=== PATIENT | female | born 1945 | race Caucasian/White ===

== ENCOUNTER 2024-03-03 08:51 | Outpatient (CLI) | payer MEDICARE, OTHER ==
[~2024-03-03] VITALS: Ht 160 cm; Wt 49.0 kg
[2024-03-03] VITALS (7 sets, daily range): BP systolic 133–159; BP diastolic 43–58; PULSE 86–104; RESP 18–20; O2SAT 96–97
[2024-03-03] MEDS ORDERED: aminophylline 250mg/10ml inj. IV PRN (09:30)
[2024-03-03] MEDS ORDERED: normal saline 500ml IV soln 500 ML IV ONE (09:30)
[2024-03-03] MEDS ORDERED: metoprolol tartrate 1mg/ml inj IV PRN (09:30)
[2024-03-03] MEDS ORDERED: nitroGLYCERIN 0.4mg SUBLingual tab SL PRN (09:30)
[2024-03-03] MEDS: regadenoson 0.4mg/5ml syringe IV ONE (10:18)
[2024-03-03] MEDS ORDERED: METO25TA6 PO (13:04)
[2024-03-03] MEDS ORDERED: LISI20TA28 PO (13:04)
[2024-03-03] MEDS ORDERED: ATOR20TA66 PO (13:04)
[2024-03-03] MEDS ORDERED: FERR325T28 PO (13:04)
[2024-03-03] MEDS ORDERED: CLOP-32 PO (13:04)
[2024-03-03] MEDS ORDERED: MIRT-66 PO (13:04)
[2024-03-03] MEDS ORDERED: ASPI81TA52 PO (13:04)
[2024-03-03] MEDS ORDERED: PANT40TA54 PO (13:04)
== END 2024-03-03 23:59 | disposition home or self-care (01) ==
LOC: RAD 08:51
PROVIDERS: ATTEND Surgery
DX: I25.9 Chronic ischemic heart disease, unspecified (principal); D38.1 Neoplasm of uncertain behavior of trachea, bronchus and lung
CPT/HCPCS: 78452; 93017; A9500; J2785; J7040; J0280

== ENCOUNTER 2024-03-29 08:00 | Inpatient (IN) | payer MEDICARE ==
[~2024-03-29] VITALS: Ht 147.3 cm; Wt 44.3 kg
[~2024-03-29 08:00] MED LIST: ASPI81TA52 PO; ATOR20TA66 PO; CLOP-32 PO; FERR325T28 PO; LISI20TA28 PO
[2024-03-29] MEDS ORDERED: MIRT-66 PO (16:24)
[2024-03-31] VITALS (28 sets, daily range): BP systolic 93–179; BP diastolic 42–110; PULSE 74–96; RESP 10–18; TEMP 97.3; O2SAT 90–100
[2024-03-31] MEDS: cefazolin 2gm/D5W 100mL 100 ML IV ONE (05:30)
[2024-03-31] MEDS: ringers solution, lacted 1,000 ML IV SCH ×2 (06:57→12:42)
[2024-03-31] MEDS: famotidine 20mg tablet PO ONE (06:57)
[2024-03-31] MEDS: INDOCYANINE GREEN 25 MG/10 ML VIAL IV ONE (07:28)
[2024-03-31] MEDS ORDERED: MIDAZolam 1 MG/ML 5ML VIAL ONE (07:55)
[2024-03-31] MEDS ORDERED: fentaNYL /PF 50mcg/ml 5ml ampule ONE (07:55)
[2024-03-31] MEDS ORDERED: rocuronium 10mg/ml inj IV ONE (07:58)
[2024-03-31] MEDS ORDERED: ondansetron/PF 4mg/2ml inj ONE (07:58)
[2024-03-31] MEDS ORDERED: LIDOcaine 2% (20mg/ml) 5ml vial ONE (07:58)
[2024-03-31] MEDS ORDERED: dexamethasone sod phosphate 4mg/ml inj. ONE (07:58)
[2024-03-31] MEDS ORDERED: propofol inj 20 ML IV ONE (07:58)
[2024-03-31 08:04] LABS: ALANINE AMINOTRANSFERASE 19 U/L (12-78); ALBUMIN 2.7 G/DL (3.4-5.0); ALBUMIN/GLOBULIN RATIO 0.8 (1.1-1.5); ALKALINE PHOSPHATASE 51 IU/L (46-116); ANION GAP 2 (8-16); ASPARTATE AMINO TRANSFERASE 17 U/L (10-37); BILIRUBIN,TOTAL 0.3 MG/DL (0.1-1.0); BLOOD UREA NITROGEN 6 MG/DL (7-18); BUN/CREATININE RATIO 9.1 (10.0-20.0); CALCIUM 8.3 MG/DL (8.5-10.1); CHLORIDE 101 MMOL/L (99-107); CREATININE 0.66 MG/DL (0.40-0.90); GLUCOSE 95 MG/DL (70-104); POTASSIUM 4.2 MMOL/L (3.5-5.1); SODIUM 133 MMOL/L (135-145); TOTAL CARBON DIOXIDE 29.6 MMOL/L (24-32); TOTAL PROTEIN 6.3 G/DL (6.4-8.2); eCRCL 54 ML/MIN; eGFR 87 ML/MIN
[2024-03-31] MEDS ORDERED: fentaNYL/PF 50MCG/1 ML 2ML syringe IV PRN (08:05)
[2024-03-31] MEDS ORDERED: labetalol 20mg/4ml (5mg/ml) syringe IV PRN (08:05)
[2024-03-31] MEDS ORDERED: ondansetron/PF 4mg/2ml inj IV PRN (08:05)
[2024-03-31] MEDS ORDERED: hydrALAZINE 20mg/ml inj. IV PRN (08:05)
[2024-03-31] MEDS ORDERED: morphine 2 MG/ML inj. syringe IV PRN (08:05)
[2024-03-31] MEDS ORDERED: morphine 4 MG/ML inj SYRINge IV PRN (08:05)
[2024-03-31] MEDS ORDERED: sevoflurane 250ml liquid IH ONE (08:15)
[2024-03-31] MEDS ORDERED: albumin (Human) 5% 250ml 250 ML IV ONE (09:36)
[2024-03-31] MEDS: BUPIVACAINE liposomal/PF 13.3 MG/ML vial IM ONE (10:04)
[2024-03-31] MEDS: BUPIVAcaine 2.5mg/ml inj 50ml vial (contains preservative) ONE (10:11)
[2024-03-31] MEDS ORDERED: acetaminophen 1,000mg/100ml IV 100 ML IV ONE (10:13)
[2024-03-31] MEDS ORDERED: sugammadex 200mg/2ml injection IV ONE (10:43)
[2024-03-31] MEDS ORDERED: naloxone 0.4 mg/ml inj IV PRN (11:15)
[2024-03-31] MEDS: fentaNYL/PF 50MCG/1 ML 2ML syringe IV PRN (11:20)
[2024-03-31 11:28] LABS: ABG BASE EXCESS -1.8 mmol/L (-2.0-2.0); ABG OXYGEN SATURATION 99.3 % (92-98.5); ABG PCO2 (T) 50.7 mmHg (32.0-45.0); ABG PH (T) 7.307 (7.350-7.450); ABG PO2 (T) 174.6 mmHg (75.0-100.0); ALLEN'S TEST POSITIVE; FCOHb 0.5 % (0.5-1.5); FHHb 0.7 % (0.0-5.0); FLOW 10 L/min; FO2Hb 98.8 % (94-97); MODE MASK - SIMPLE; PATIENT TEMPERATURE 36.1; TOTAL HEMOGLOBIN 10.1 G/dl (12.0-16.0)
[2024-03-31] MEDS: potassium CL 20mEq in D5-1/2NS 1,000 ML IV SCH (12:13)
[2024-03-31 12:57] LABS: ABG BASE EXCESS 0.4 mmol/L (-2.0-2.0); ABG HCO3 26.3 mmol/L (22.0-26.0); ABG OXYGEN SATURATION 94.1 % (92-98.5); ABG PCO2 (T) 46.8 mmHg (32.0-45.0); ABG PH (T) 7.363 (7.350-7.450); ABG PO2 (T) 70.8 mmHg (75.0-100.0); ALLEN'S TEST NEGATIVE; FCOHb 0.3 % (0.5-1.5); FHHb 5.9 % (0.0-5.0); FLOW 1 L/min; FMetHb 0.3 % (0.0-1.5); FO2Hb 93.5 % (94-97); MODE NASAL CANNULA; TOTAL HEMOGLOBIN 9.8 G/dl (12.0-16.0)
[2024-03-31] MEDS: ketorolac trometh 15mg/ml vial 15 MG/ML ML IV PRN (14:03)
[2024-03-31] MEDS: nicotine 14mg patch - 24hr TD SCH (14:03)
[2024-03-31] MEDS: ferrous sulfate 325mg tablet PO SCH (14:05)
[2024-03-31] MEDS: clopidogrel 75mg tablet PO SCH (14:05)
[2024-03-31] MEDS: aspirin 81mg, enteric-coated 1 TAB TABLET.DR PO SCH (14:05)
[2024-03-31] MEDS: atorvastatin 20mg tablet PO SCH (14:33)
[2024-03-31] MEDS: HYDROcodone/acetaminophen 5mg/325mg tablet PO PRN (14:33)
[2024-03-31] MEDS: lisinopril 20mg tablet PO SCH (14:33)
[2024-03-31] MEDS: albuterol 2.5 MG/3 ML nebule NEB ONE (14:47)
[2024-03-31 15:15] LABS: BASOPHILS % (AUTO) 0.2 % (0-1); EOSINOPHILS % (AUTO) 0 % (0-6); HEMATOCRIT 26.3 % (35.0-45.0); HEMOGLOBIN 8.2 g/dl (12.0-16.0); LYMPHOCYTES # (AUTO) 0.2 X10'3 (1.1-4.8); LYMPHOCYTES % (AUTO) 1.7 % (21-51); MEAN CORPUSCULAR HEMOGLOBIN 28.6 PG (27.0-31.0); MEAN CORPUSCULAR HGB CONC 31.1 g/dL (33.0-36.5); MEAN CORPUSCULAR VOLUME 92.1 FL (78-98); MEAN PLATELET VOLUME 8.9 FL (7.4-10.4); MONOCYTES # (AUTO) 0.2 X10'3 (0-0.9); MONOCYTES % (AUTO) 1.7 % (2-12); NEUTROPHILS # (AUTO) 9.8 X10'3 (1.8-7.7); NEUTROPHILS % (AUTO) 96.4 % (42-75); PLATELET COUNT 158 X10'3 (140-440); RED BLOOD COUNT 2.86 X10'6 (4.20-5.60); RED CELL DISTRIBUTION WIDTH 16.5 % (11.5-14.5); WHITE BLOOD COUNT 10.1 X10'3 (4.5-11.0)
[2024-03-31 15:27] LABS: ALANINE AMINOTRANSFERASE 22 U/L (12-78); ALBUMIN 2.7 G/DL (3.4-5.0); ALKALINE PHOSPHATASE 47 IU/L (46-116); ANION GAP 4 (8-16); ASPARTATE AMINO TRANSFERASE 24 U/L (10-37); BILIRUBIN,TOTAL 0.2 MG/DL (0.1-1.0); BLOOD UREA NITROGEN 6 MG/DL (7-18); BUN/CREATININE RATIO 8.5 (10.0-20.0); CALCIUM 7.7 MG/DL (8.5-10.1); CHLORIDE 98 MMOL/L (99-107); CREATININE 0.71 MG/DL (0.40-0.90); GLUCOSE 274 MG/DL (70-104); MAGNESIUM 1.4 MG/DL (1.5-2.4); PHOSPHORUS 3.4 MG/DL (2.3-4.5); POTASSIUM 3.8 MMOL/L (3.5-5.1); SODIUM 130 MMOL/L (135-145); TOTAL CARBON DIOXIDE 28.3 MMOL/L (24-32); TOTAL PROTEIN 5.5 G/DL (6.4-8.2); eCRCL 43 ML/MIN; eGFR 80 ML/MIN
[2024-03-31] MEDS ORDERED: potassium Cl 40MEQ/1/2NS 520ml 520 ML IV PRN (15:30)
[2024-03-31] MEDS ORDERED: potassium Cl 20 mEq SR tablet PO PRN ×2 (15:30)
[2024-03-31] MEDS ORDERED: magnesium Cl slow-release 64mg tablet PO PRN (15:30)
[2024-03-31] MEDS: magnesium sulf-water 4G/100mL 100 ML IV PRN (15:57)
[2024-03-31] MEDS: ceFAZolin/D5W- 1GM premix 50 ML IV SCH (16:29)
[2024-03-31] MEDS: HYDROmorphone inj. 0.5 MG/0.5 ML DISP.SYRIN IV PRN (17:59)
[2024-03-31] MEDS: K and/or MAG REPLACEMENT MC SCH (18:44)
[2024-03-31] MEDS: magnesium sulf-water 2g/50mL 50 ML IV PRN (20:44)
[2024-03-31] MEDS: mirtazapine 15mg tablet PO SCH (20:44)
[2024-03-31] MEDS: ondansetron/PF 4mg/2ml inj IV PRN (21:35)
[2024-03-31] MEDS: potassium cl 20mEq in 1/2 NS 1,000 ML IV SCH (21:37)
[2024-04-01] VITALS (21 sets, daily range): BP systolic 107–182; BP diastolic 42–102; PULSE 77–115; RESP 9–21; TEMP 97.7; O2SAT 91–99
[2024-04-01 00:27] LABS: BASOPHILS % (AUTO) 0.1 % (0-1); EOSINOPHILS % (AUTO) 0 % (0-6); LYMPHOCYTES # (AUTO) 0.3 X10'3 (1.1-4.8); MEAN CORPUSCULAR HEMOGLOBIN 29.4 PG (27.0-31.0); MEAN CORPUSCULAR VOLUME 91.8 FL (78-98); MEAN PLATELET VOLUME 9.1 FL (7.4-10.4); MONOCYTES # (AUTO) 0.2 X10'3 (0-0.9); MONOCYTES % (AUTO) 3.3 % (2-12); NEUTROPHILS # (AUTO) 6.4 X10'3 (1.8-7.7); NEUTROPHILS % (AUTO) 92.6 % (42-75); PLATELET COUNT 148 X10'3 (140-440); RED BLOOD COUNT 2.32 X10'6 (4.20-5.60); RED CELL DISTRIBUTION WIDTH 16.7 % (11.5-14.5); WHITE BLOOD COUNT 6.9 X10'3 (4.5-11.0)
[2024-04-01 00:29] LABS: HEMATOCRIT 21.3 % (35.0-45.0); HEMOGLOBIN 6.8 g/dl (12.0-16.0)
[2024-04-01 00:38] LABS: ALANINE AMINOTRANSFERASE 19 U/L (12-78); ALBUMIN 2.4 G/DL (3.4-5.0); ALBUMIN/GLOBULIN RATIO 0.9 (1.1-1.5); ALKALINE PHOSPHATASE 41 IU/L (46-116); ANION GAP 4 (8-16); ASPARTATE AMINO TRANSFERASE 23 U/L (10-37); BILIRUBIN,TOTAL 0.2 MG/DL (0.1-1.0); BLOOD UREA NITROGEN 8 MG/DL (7-18); BUN/CREATININE RATIO 12.3 (10.0-20.0); CALCIUM 7.6 MG/DL (8.5-10.1); CHLORIDE 97 MMOL/L (99-107); CREATININE 0.65 MG/DL (0.40-0.90); GLUCOSE 224 MG/DL (70-104); MAGNESIUM 3.1 MG/DL (1.5-2.4); PHOSPHORUS 2.8 MG/DL (2.3-4.5); POTASSIUM 4.8 MMOL/L (3.5-5.1); SODIUM 127 MMOL/L (135-145); TOTAL CARBON DIOXIDE 26.3 MMOL/L (24-32); TOTAL PROTEIN 5.2 G/DL (6.4-8.2); eCRCL 46 ML/MIN; eGFR 88 ML/MIN
[2024-04-01] MEDS: albumin (Human) 5% 250ml 250 ML IV ONE ×2 (01:57)
[2024-04-01] MEDS: hydrALAZINE 20mg/ml inj. IV PRN (04:17)
[2024-04-01 05:28] LABS: HEMATOCRIT 23.3 % (35.0-45.0); HEMOGLOBIN 7.5 g/dl (12.0-16.0); MEAN CORPUSCULAR HEMOGLOBIN 28.9 PG (27.0-31.0); MEAN CORPUSCULAR HGB CONC 32.2 g/dL (33.0-36.5); MEAN CORPUSCULAR VOLUME 89.8 FL (78-98); MEAN PLATELET VOLUME 9.3 FL (7.4-10.4); PLATELET COUNT 121 X10'3 (140-440); RED BLOOD COUNT 2.59 X10'6 (4.20-5.60); RED CELL DISTRIBUTION WIDTH 16.4 % (11.5-14.5); WHITE BLOOD COUNT 7.2 X10'3 (4.5-11.0)
[2024-04-01] MEDS: metoclopramide 5 mg/ml inj IV PRN (06:51)
[2024-04-01] MEDS: metoclopramide 5 mg/ml inj IV SCH (12:49)
[2024-04-02] VITALS (13 sets, daily range): BP systolic 107–174; BP diastolic 47–84; PULSE 109–122; RESP 14–26; TEMP 97.7–99.3; O2SAT 96–99
[2024-04-02] MEDS ORDERED: hydrALAZINE 20mg/ml inj. IV PRN (01:45)
[2024-04-02 09:11] LABS: ALANINE AMINOTRANSFERASE 18 U/L (12-78); ALBUMIN 2.7 G/DL (3.4-5.0); ALKALINE PHOSPHATASE 41 IU/L (46-116); ANION GAP 5 (8-16); ASPARTATE AMINO TRANSFERASE 30 U/L (10-37); BILIRUBIN,TOTAL 0.4 MG/DL (0.1-1.0); BLOOD UREA NITROGEN 9 MG/DL (7-18); BUN/CREATININE RATIO 13.8 (10.0-20.0); CALCIUM 7.7 MG/DL (8.5-10.1); CHLORIDE 96 MMOL/L (99-107); CREATININE 0.65 MG/DL (0.40-0.90); GLUCOSE 121 MG/DL (70-104); POTASSIUM 4.9 MMOL/L (3.5-5.1); SODIUM 126 MMOL/L (135-145); TOTAL CARBON DIOXIDE 25.1 MMOL/L (24-32); TOTAL PROTEIN 5.4 G/DL (6.4-8.2); eCRCL 46 ML/MIN; eGFR 88 ML/MIN
[2024-04-02 09:16] LABS: BASOPHILS % (AUTO) 0.2 % (0-1); EOSINOPHILS % (AUTO) 0.1 % (0-6); LYMPHOCYTES # (AUTO) 1.3 X10'3 (1.1-4.8); LYMPHOCYTES % (AUTO) 12.8 % (21-51); MEAN CORPUSCULAR HEMOGLOBIN 28.6 PG (27.0-31.0); MEAN CORPUSCULAR HGB CONC 31.9 g/dL (33.0-36.5); MEAN CORPUSCULAR VOLUME 89.5 FL (78-98); MEAN PLATELET VOLUME 9.5 FL (7.4-10.4); MONOCYTES # (AUTO) 0.6 X10'3 (0-0.9); MONOCYTES % (AUTO) 6.2 % (2-12); NEUTROPHILS # (AUTO) 8.3 X10'3 (1.8-7.7); NEUTROPHILS % (AUTO) 80.7 % (42-75); PLATELET COUNT 157 X10'3 (140-440); RED BLOOD COUNT 2.16 X10'6 (4.20-5.60); RED CELL DISTRIBUTION WIDTH 16.3 % (11.5-14.5); WHITE BLOOD COUNT 10.3 X10'3 (4.5-11.0)
[2024-04-02 09:19] LABS: HEMATOCRIT 19.3 % (35.0-45.0); HEMOGLOBIN 6.2 g/dl (12.0-16.0)
[2024-04-02 10:17] LABS: MAGNESIUM 1.7 MG/DL (1.5-2.4)
[2024-04-02] MEDS: ceFAZolin/D5W- 1GM premix 50 ML IV SCH (16:18)
[2024-04-02] MEDS: haloperidol lactate 5mg/ml inj IM PRN (19:56)
[2024-04-03] VITALS (7 sets, daily range): BP systolic 112–141; BP diastolic 44–56; PULSE 105–114; RESP 14–19; TEMP 97.9–98.1; O2SAT 92–95
[2024-04-03 14:42] LABS: BASOPHILS % (AUTO) 0.3 % (0-1); EOSINOPHILS % (AUTO) 0.3 % (0-6); HEMATOCRIT 22.3 % (35.0-45.0); HEMOGLOBIN 7.3 g/dl (12.0-16.0); LYMPHOCYTES % (AUTO) 11.7 % (21-51); MEAN CORPUSCULAR HEMOGLOBIN 29.2 PG (27.0-31.0); MEAN CORPUSCULAR HGB CONC 32.5 g/dL (33.0-36.5); MEAN CORPUSCULAR VOLUME 89.7 FL (78-98); MEAN PLATELET VOLUME 9.1 FL (7.4-10.4); MONOCYTES # (AUTO) 0.5 X10'3 (0-0.9); MONOCYTES % (AUTO) 5.7 % (2-12); NEUTROPHILS # (AUTO) 7.2 X10'3 (1.8-7.7); PLATELET COUNT 136 X10'3 (140-440); RED BLOOD COUNT 2.49 X10'6 (4.20-5.60); RED CELL DISTRIBUTION WIDTH 15.2 % (11.5-14.5); WHITE BLOOD COUNT 8.8 X10'3 (4.5-11.0)
[2024-04-03 14:53] LABS: ALANINE AMINOTRANSFERASE 27 U/L (12-78); ALBUMIN 2.4 G/DL (3.4-5.0); ALBUMIN/GLOBULIN RATIO 0.9 (1.1-1.5); ALKALINE PHOSPHATASE 43 IU/L (46-116); ANION GAP 6 (8-16); ASPARTATE AMINO TRANSFERASE 66 U/L (10-37); BILIRUBIN,TOTAL 0.5 MG/DL (0.1-1.0); BLOOD UREA NITROGEN 10 MG/DL (7-18); BUN/CREATININE RATIO 18.5 (10.0-20.0); CALCIUM 7.7 MG/DL (8.5-10.1); CHLORIDE 96 MMOL/L (99-107); CREATININE 0.54 MG/DL (0.40-0.90); GLUCOSE 116 MG/DL (70-104); MAGNESIUM 1.5 MG/DL (1.5-2.4); POTASSIUM 4.1 MMOL/L (3.5-5.1); SODIUM 128 MMOL/L (135-145); TOTAL CARBON DIOXIDE 25.9 MMOL/L (24-32); TOTAL PROTEIN 5.1 G/DL (6.4-8.2); eCRCL 55 ML/MIN; eGFR > 90 ML/MIN
[2024-04-04 02:00] VITALS: BP 140/45; PULSE 105; RESP 14; TEMP 98.1; O2SAT 94
[2024-04-04 06:21] LABS: MAGNESIUM 1.7 MG/DL (1.5-2.4); POTASSIUM 3.8 MMOL/L (3.5-5.1)
[2024-04-04 08:00] VITALS: RESP 16; O2SAT 94
[2024-04-04] MEDS: docusate sod 100mg capsule PO SCH (09:19)
[2024-04-04] MEDS: lactose-reduced food (Ensure Enlive) - 237ml bottle PO SCH (18:00)
[2024-04-04 20:00] VITALS: RESP 16; RESP 18; O2SAT 93; O2SAT 94
[2024-04-04] MEDS: sennosides/docusate sodium tablet PO SCH (20:17)
[2024-04-05] VITALS (7 sets, daily range): BP systolic 102–149; BP diastolic 44–60; PULSE 109–114; RESP 16–20; TEMP 97–98.2; O2SAT 93–94
[2024-04-06] VITALS (8 sets, daily range): BP systolic 115–155; BP diastolic 41–62; PULSE 108–118; RESP 13–20; TEMP 97.1–99; O2SAT 93–98
[2024-04-07] VITALS (7 sets, daily range): BP systolic 121–130; BP diastolic 52–88; PULSE 100–113; RESP 14–22; TEMP 97.6–98.1; O2SAT 94–98
[2024-04-08] VITALS (8 sets, daily range): BP systolic 108–160; BP diastolic 40–73; PULSE 94–120; RESP 15–32; TEMP 96.8–98.9; O2SAT 93–97
[2024-04-08 11:04] LABS: BASOPHILS # (AUTO) 0.1 X10'3 (0-0.2); BASOPHILS % (AUTO) 0.5 % (0-1); EOSINOPHILS # (AUTO) 0.1 X10'3 (0-0.9); EOSINOPHILS % (AUTO) 0.6 % (0-6); HEMATOCRIT 23.1 % (35.0-45.0); HEMOGLOBIN 7.4 g/dl (12.0-16.0); LYMPHOCYTES # (AUTO) 0.6 X10'3 (1.1-4.8); LYMPHOCYTES % (AUTO) 4.2 % (21-51); MEAN CORPUSCULAR HEMOGLOBIN 29.5 PG (27.0-31.0); MEAN CORPUSCULAR HGB CONC 32.2 g/dL (33.0-36.5); MEAN CORPUSCULAR VOLUME 91.6 FL (78-98); MEAN PLATELET VOLUME 9.2 FL (7.4-10.4); MONOCYTES # (AUTO) 0.7 X10'3 (0-0.9); MONOCYTES % (AUTO) 5.2 % (2-12); NEUTROPHILS % (AUTO) 89.5 % (42-75); PLATELET COUNT 199 X10'3 (140-440); RED BLOOD COUNT 2.53 X10'6 (4.20-5.60); WHITE BLOOD COUNT 13.4 X10'3 (4.5-11.0)
[2024-04-08 12:08] LABS: ALBUMIN 1.9 G/DL (3.4-5.0); ANION GAP 8 (8-16); BLOOD UREA NITROGEN 12 MG/DL (7-18); BUN/CREATININE RATIO 25.5 (10.0-20.0); CHLORIDE 95 MMOL/L (99-107); CREATININE 0.47 MG/DL (0.40-0.90); GLUCOSE 81 MG/DL (70-104); POTASSIUM 3.5 MMOL/L (3.5-5.1); SODIUM 131 MMOL/L (135-145); TOTAL CARBON DIOXIDE 27.7 MMOL/L (24-32); eCRCL 64 ML/MIN; eGFR > 90 ML/MIN
[2024-04-09] MEDS: acetaminophen 1,000mg/100ml IV 100 ML IV ONE (02:00)
[2024-04-09] MEDS: heparin 25,000 UNIT/250ml bag 0 ML IV ONE (02:00)
[2024-04-09] MEDS: iohexol 300 MG/1 ML 50ml polymer ONE (02:00)
[2024-04-09] MEDS: heparin 10,000 units/1 ML INJ ONE (02:00)
[2024-04-09 07:00] VITALS: BP 126/59; PULSE 111; RESP 14; TEMP 98.5; O2SAT 96
[2024-04-09 08:00] VITALS: RESP 14; O2SAT 96
[2024-04-09] MEDS ORDERED: iohexol 350 MG/ML 50ML vial IV ONE (11:21)
[2024-04-09] MEDS ORDERED: iohexol 350MG/ML 100ml bottle IV ONE (11:22)
[2024-04-09 15:00] VITALS: BP 120/47; PULSE 108; RESP 21; TEMP 99.3; O2SAT 95
[2024-04-09 20:00] VITALS: RESP 16; O2SAT 95
[2024-04-09] MEDS: ringers solution, lacted 1,000 ML IV SCH (20:10)
[2024-04-09] MEDS ORDERED: morphine 4 MG/ML inj SYRINge IV PRN (20:10)
[2024-04-09] MEDS ORDERED: labetalol 20mg/4ml (5mg/ml) syringe IV PRN (20:10)
[2024-04-09] MEDS ORDERED: hydrALAZINE 20mg/ml inj. IV PRN (20:10)
[2024-04-09] MEDS ORDERED: morphine 2 MG/ML inj. syringe IV PRN (20:10)
[2024-04-09] MEDS ORDERED: meperidine/PF 25mg/ml syringe IV PRN ×3 (20:10)
[2024-04-09] MEDS ORDERED: ondansetron/PF 4mg/2ml inj IV PRN (20:10)
[2024-04-09] MEDS ORDERED: proCHLORperazine 10 MG/2 ml inj IV PRN (20:10)
[2024-04-09] MEDS ORDERED: sevoflurane 250ml liquid IH ONE (21:01)
[2024-04-09] MEDS ORDERED: midazolam 1 mg/ML 2ml injection ONE (22:02)
[2024-04-09] MEDS ORDERED: rocuronium 10mg/ml inj IV ONE (22:13)
[2024-04-09] MEDS ORDERED: fentaNYL /PF 50mcg/ml 5ml ampule ONE (22:13)
[2024-04-09] MEDS ORDERED: LIDOcaine 2% (20mg/ml) 5ml vial ONE (22:13)
[2024-04-09] MEDS ORDERED: propofol inj 20 ML IV ONE (22:13)
[2024-04-09] MEDS ORDERED: 0.9 % SODIUM CHLORIDE 10 ML VIAL ONE (22:14)
[2024-04-09] MEDS ORDERED: ePHEDrine 50MG/ML INJ. ONE (22:14)
[2024-04-09] MEDS ORDERED: ceFAZolin 1000mg inj ONE ×2 (22:14)
[2024-04-09] MEDS ORDERED: dexamethasone sod phosphate 4mg/ml inj. ONE (22:21)
[2024-04-09] MEDS ORDERED: ondansetron/PF 4mg/2ml inj ONE (22:21)
[2024-04-09] MEDS ORDERED: heparin 1,000unit/ml 10ml vial 10 ML ONE (23:26)
[2024-04-09] MEDS: heparin 10,000 units/1 ML INJ IR ONE (23:58)
[2024-04-10] VITALS (50 sets, daily range): BP systolic 84–167; BP diastolic 35–71; PULSE 86–123; RESP 10–19; TEMP 98.4–99.9; O2SAT 88–100
[2024-04-10] MEDS ORDERED: 0.9 % SODIUM CHLORIDE 10 ML VIAL ONE ×3 (00:09)
[2024-04-10] MEDS: midazolam 1 mg/ML 2ml injection IV ONE (01:00)
[2024-04-10] MEDS ORDERED: fentaNYL/PF 50MCG/1 ML 2ML syringe IV PRN (01:00)
[2024-04-10] MEDS: FENTANYL-0.9 % NACL/PF 100 ML IV SCH (01:32)
[2024-04-10 01:33] LABS: APTT > 139 SECONDS (22-32)
[2024-04-10] MEDS: MIDAZOLAM IN NACL,ISO-OSMOT/PF 100 ML IV SCH (01:35)
[2024-04-10 01:45] LABS: ABG BASE EXCESS -5.9 mmol/L (-2.0-2.0); ABG HCO3 18.4 mmol/L (22.0-26.0); ABG OXYGEN SATURATION 99.7 % (92-98.5); ABG PCO2 (T) 30.8 mmHg (32.0-45.0); ABG PH (T) 7.391 (7.350-7.450); ABG PO2 (T) 498.6 mmHg (75.0-100.0); FCOHb 0.3 % (0.5-1.5); FHHb 0.3 % (0.0-5.0); FMetHb 0.3 % (0.0-1.5); FO2Hb 99.1 % (94-97); PATIENT TEMPERATURE 36.3; PEEP 5 cm H2O; RESPIRATORY RATE 12 b/min; TIDAL VOLUME 450 mL; TOTAL HEMOGLOBIN 9.8 G/dl (12.0-16.0)
[2024-04-10] MEDS: ceFAZolin/D5W- 1GM premix 50 ML IV SCH (02:00)
[2024-04-10 02:37] LABS: BASOPHILS % (AUTO) 0.2 % (0-1); EOSINOPHILS % (AUTO) 0.2 % (0-6); HEMATOCRIT 27.8 % (35.0-45.0); HEMOGLOBIN 8.9 g/dl (12.0-16.0); LYMPHOCYTES # (AUTO) 0.2 X10'3 (1.1-4.8); LYMPHOCYTES % (AUTO) 2.1 % (21-51); MEAN CORPUSCULAR HEMOGLOBIN 30.3 PG (27.0-31.0); MEAN CORPUSCULAR VOLUME 94.6 FL (78-98); MEAN PLATELET VOLUME 9.3 FL (7.4-10.4); MONOCYTES # (AUTO) 0.2 X10'3 (0-0.9); MONOCYTES % (AUTO) 1.9 % (2-12); NEUTROPHILS # (AUTO) 10.9 X10'3 (1.8-7.7); NEUTROPHILS % (AUTO) 95.6 % (42-75); PLATELET COUNT 135 X10'3 (140-440); RED BLOOD COUNT 2.93 X10'6 (4.20-5.60); RED CELL DISTRIBUTION WIDTH 16.7 % (11.5-14.5); WHITE BLOOD COUNT 11.4 X10'3 (4.5-11.0)
[2024-04-10 02:51] LABS: ALANINE AMINOTRANSFERASE 76 U/L (12-78); ALBUMIN/GLOBULIN RATIO 0.4 (1.1-1.5); ALKALINE PHOSPHATASE 60 IU/L (46-116); ANION GAP 11 (8-16); ASPARTATE AMINO TRANSFERASE 147 U/L (10-37); BILIRUBIN,TOTAL 0.4 MG/DL (0.1-1.0); BLOOD UREA NITROGEN 14 MG/DL (7-18); BUN/CREATININE RATIO 19.4 (10.0-20.0); CALCIUM 6.7 MG/DL (8.5-10.1); CHLORIDE 104 MMOL/L (99-107); CREATININE 0.72 MG/DL (0.40-0.90); GLUCOSE 199 MG/DL (70-104); POTASSIUM 3.8 MMOL/L (3.5-5.1); SODIUM 136 MMOL/L (135-145); TOTAL CARBON DIOXIDE 20.9 MMOL/L (24-32); TOTAL PROTEIN 3.5 G/DL (6.4-8.2); eCRCL 42 ML/MIN; eGFR 78 ML/MIN
[2024-04-10 03:09] LABS: APTT 103 SECONDS (22-32)
[2024-04-10] MEDS: albumin (Human) 5% 250ml 250 ML IV ONE ×5 (04:55→08:04)
[2024-04-10] MEDS: dextrose 5%-lactated ringers 1,000 ML IV SCH (05:44)
[2024-04-10 07:41] LABS: BASOPHILS % (AUTO) 0.1 % (0-1); EOSINOPHILS % (AUTO) 0 % (0-6); HEMATOCRIT 24.7 % (35.0-45.0); HEMOGLOBIN 8.2 g/dl (12.0-16.0); LYMPHOCYTES # (AUTO) 0.2 X10'3 (1.1-4.8); LYMPHOCYTES % (AUTO) 1.1 % (21-51); MEAN CORPUSCULAR HEMOGLOBIN 30.2 PG (27.0-31.0); MEAN CORPUSCULAR HGB CONC 33.3 g/dL (33.0-36.5); MEAN CORPUSCULAR VOLUME 90.7 FL (78-98); MEAN PLATELET VOLUME 9.6 FL (7.4-10.4); MONOCYTES # (AUTO) 0.6 X10'3 (0-0.9); MONOCYTES % (AUTO) 2.5 % (2-12); NEUTROPHILS # (AUTO) 21.4 X10'3 (1.8-7.7); NEUTROPHILS % (AUTO) 96.3 % (42-75); PLATELET COUNT 110 X10'3 (140-440); RED BLOOD COUNT 2.72 X10'6 (4.20-5.60); RED CELL DISTRIBUTION WIDTH 16.1 % (11.5-14.5); WHITE BLOOD COUNT 22.2 X10'3 (4.5-11.0)
[2024-04-10 07:48] LABS: APTT 32 SECONDS (22-32)
[2024-04-10] MEDS ORDERED: NORepinephrine 8mg/ 250ml NS 250 ML IV PRN (08:00)
[2024-04-10] MEDS: piperacillin/tazo 3.375gm/50ml 50 ML IV SCH (08:19)
[2024-04-10 10:00] LABS: MAGNESIUM 1.6 MG/DL (1.5-2.4); PHOSPHORUS 4.5 MG/DL (2.3-4.5)
[2024-04-10 11:53] LABS: ISTAT ANION GAP 8 (8-12); ISTAT BUN 14 mg/dL (7-18); ISTAT CL 99 mmol/L (99-107); ISTAT CREATININE 0.5 mg/dL (0.6-1.1); ISTAT GLUCOSE 175 mg/dL (70-104); ISTAT NA 132 mmol/L (135-145); ISTAT TOTAL CO2 25 mmol/L (24-32); ISTAT eGFR > 90 ML/MIN
[2024-04-10 11:54] LABS: ISTAT IONIZED CALCIUM 1.02 mmol/L (1.03-1.32)
[2024-04-10 11:58] LABS: ISTAT HGB < 15.0 g/dl (12.0-16.0)
[2024-04-10 12:17] LABS: OXYGEN SATURATION (MIXED VEN) 78.9 % (60-80); PO2 MIXED VENOUS (TEMP COR) 39.8 mmHg (35-46)
[2024-04-10] MEDS: albumin (human) 25% 100 ML IV solution IV ONE (12:29)
[2024-04-10 16:38] LABS: BASOPHILS % (AUTO) 0.4 % (0-1); EOSINOPHILS % (AUTO) 0 % (0-6); HEMATOCRIT 23.9 % (35.0-45.0); LYMPHOCYTES # (AUTO) 0.4 X10'3 (1.1-4.8); MEAN CORPUSCULAR HEMOGLOBIN 29.6 PG (27.0-31.0); MEAN CORPUSCULAR HGB CONC 33.4 g/dL (33.0-36.5); MEAN CORPUSCULAR VOLUME 88.8 FL (78-98); MEAN PLATELET VOLUME 9.1 FL (7.4-10.4); MONOCYTES # (AUTO) 0.8 X10'3 (0-0.9); MONOCYTES % (AUTO) 6.2 % (2-12); NEUTROPHILS # (AUTO) 11.3 X10'3 (1.8-7.7); NEUTROPHILS % (AUTO) 90.4 % (42-75); PLATELET COUNT 77 X10'3 (140-440); RED CELL DISTRIBUTION WIDTH 16.1 % (11.5-14.5); WHITE BLOOD COUNT 12.5 X10'3 (4.5-11.0)
[2024-04-10 16:54] LABS: ALANINE AMINOTRANSFERASE 35 U/L (12-78); ALBUMIN 3.2 G/DL (3.4-5.0); ALBUMIN/GLOBULIN RATIO 2.3 (1.1-1.5); ALKALINE PHOSPHATASE 30 IU/L (46-116); ANION GAP 8 (8-16); ASPARTATE AMINO TRANSFERASE 67 U/L (10-37); BILIRUBIN,TOTAL 1.2 MG/DL (0.1-1.0); BLOOD UREA NITROGEN 13 MG/DL (7-18); BUN/CREATININE RATIO 21.7 (10.0-20.0); CALCIUM 7.1 MG/DL (8.5-10.1); CHLORIDE 106 MMOL/L (99-107); GLUCOSE 168 MG/DL (70-104); POTASSIUM 3.4 MMOL/L (3.5-5.1); SODIUM 138 MMOL/L (135-145); TOTAL CARBON DIOXIDE 24.3 MMOL/L (24-32); TOTAL PROTEIN 4.6 G/DL (6.4-8.2); eCRCL 50 ML/MIN; eGFR > 90 ML/MIN
[2024-04-10] MEDS: potassium Cl 40MEQ/270ML bag 270 ML IV PRN (17:10)
[2024-04-10 17:32] LABS: NUCLEATED RED BLOOD CELLS 1 /100WBC (0-0); TOTAL CELLS COUNTED 100
[2024-04-10 17:33] LABS: ANISOCYTOSIS 1+; MAGNESIUM 1.6 MG/DL (1.5-2.4); PLATELET ESTIMATE DECREASED
[2024-04-10 17:34] LABS: HYPOCHROMASIA 1+; POLYCHROMASIA 1+
[2024-04-10] MEDS: COMMUNICATION ORDER 1 EA MISC MC ONE (18:10)
[2024-04-10] MEDS: docusate sodium 100mg/10ml UD cup OGT SCH (21:19)
[2024-04-11] VITALS (33 sets, daily range): BP systolic 97–150; BP diastolic 38–73; PULSE 91–115; RESP 11–20; O2SAT 92–100
[2024-04-11] MEDS: mineral oil/petrolatum ophthal oint EACHEYE SCH (02:00)
[2024-04-11 03:01] LABS: ALANINE AMINOTRANSFERASE 34 U/L (12-78); ALBUMIN 2.6 G/DL (3.4-5.0); ALBUMIN/GLOBULIN RATIO 1.4 (1.1-1.5); ALKALINE PHOSPHATASE 36 IU/L (46-116); ANION GAP 8 (8-16); ASPARTATE AMINO TRANSFERASE 80 U/L (10-37); BILIRUBIN,TOTAL 1.3 MG/DL (0.1-1.0); BLOOD UREA NITROGEN 11 MG/DL (7-18); BUN/CREATININE RATIO 20.8 (10.0-20.0); CALCIUM 7.4 MG/DL (8.5-10.1); CHLORIDE 108 MMOL/L (99-107); CREATININE 0.53 MG/DL (0.40-0.90); GLUCOSE 137 MG/DL (70-104); MAGNESIUM 1.6 MG/DL (1.5-2.4); PHOSPHORUS 2.1 MG/DL (2.3-4.5); POTASSIUM 3.8 MMOL/L (3.5-5.1); SODIUM 140 MMOL/L (135-145); TOTAL CARBON DIOXIDE 24.4 MMOL/L (24-32); TOTAL PROTEIN 4.4 G/DL (6.4-8.2); eCRCL 56 ML/MIN; eGFR > 90 ML/MIN
[2024-04-11 03:09] LABS: ABG BASE EXCESS -2.8 mmol/L (-2.0-2.0); ABG HCO3 21.7 mmol/L (22.0-26.0); ABG OXYGEN SATURATION 96.3 % (92-98.5); ABG PCO2 (T) 37.1 mmHg (32.0-45.0); ABG PH (T) 7.386 (7.350-7.450); ABG PO2 (T) 86.4 mmHg (75.0-100.0); FCOHb 1.1 % (0.5-1.5); FHHb 3.6 % (0.0-5.0); FMetHb 0.3 % (0.0-1.5); PATIENT TEMPERATURE 37.3; PEEP 5 cm H2O; RESPIRATORY RATE 12 b/min; TIDAL VOLUME 450 mL; TOTAL HEMOGLOBIN 11.2 G/dl (12.0-16.0)
[2024-04-11 03:26] LABS: BASOPHILS % (AUTO) 0.3 % (0-1); EOSINOPHILS # (AUTO) 0.1 X10'3 (0-0.9); EOSINOPHILS % (AUTO) 0.4 % (0-6); HEMOGLOBIN 10.2 g/dl (12.0-16.0); LYMPHOCYTES # (AUTO) 0.8 X10'3 (1.1-4.8); LYMPHOCYTES % (AUTO) 5.4 % (21-51); MEAN CORPUSCULAR HGB CONC 32.9 g/dL (33.0-36.5); MEAN PLATELET VOLUME 9.2 FL (7.4-10.4); MONOCYTES % (AUTO) 6.9 % (2-12); PLATELET COUNT 73 X10'3 (140-440); RED BLOOD COUNT 3.52 X10'6 (4.20-5.60); RED CELL DISTRIBUTION WIDTH 15.8 % (11.5-14.5); WHITE BLOOD COUNT 14.9 X10'3 (4.5-11.0)
[2024-04-11 04:11] LABS: NUCLEATED RED BLOOD CELLS 1 /100WBC (0-0); PLATELET ESTIMATE DECREASED; TOTAL CELLS COUNTED 100
[2024-04-11 04:12] LABS: HYPOCHROMASIA 1+; POLYCHROMASIA FEW
[2024-04-11 04:14] LABS: ANISOCYTOSIS 1+; BURR CELLS FEW
[2024-04-11 04:15] LABS: SCHISTOCYTES FEW
[2024-04-11] MEDS ORDERED: aspirin 81mg tab.chew OGT SCH (08:51)
[2024-04-11] MEDS ORDERED: clopidogrel 75mg tablet OGT SCH (08:52)
[2024-04-11] MEDS ORDERED: atorvastatin 20mg tablet OGT SCH (08:52)
[2024-04-11] MEDS ORDERED: lisinopril 20mg tablet OGT SCH (08:53)
[2024-04-11] MEDS: aspirin 81mg tab.chew OGT ONE (09:03)
[2024-04-11] MEDS: clopidogrel 75mg tablet OGT SCH (09:51)
[2024-04-11] MEDS ORDERED: Neutra Phos packet PO PRN (14:10)
[2024-04-11] MEDS: magnesium sulf-water 2g/50mL 50 ML IV PRN (15:41)
[2024-04-11] MEDS ORDERED: sodium phosphate inj. 30 MMOL in dextrose 5%-water 250 ML IV PRN (16:05)
[2024-04-11] MEDS: sodium phosphate inj. 15 MMOL in dextrose 5%-water 250 ML IV PRN (17:04)
[2024-04-11] MEDS: albumin (Human) 5% 250ml 250 ML IV PRN (18:00)
[2024-04-11] MEDS: ferrous sulfate 300mg/5ml UD oral liquid OGT SCH (20:03)
[2024-04-11] MEDS: sennosides/docusate sodium tablet OGT SCH (20:09)
[2024-04-11] MEDS: apixaban 5mg tablet PO SCH (20:10)
[2024-04-11] MEDS: mirtazapine 15mg tablet OGT SCH (20:10)
[2024-04-11] MEDS: sennosides/docusate sodium tablet PO SCH (21:00)
[2024-04-11] MEDS: mirtazapine 15mg tablet PO SCH (21:00)
[2024-04-11] MEDS: HYDROmorphone inj. 0.5 MG/0.5 ML DISP.SYRIN IV PRN (21:18)
[2024-04-11] MEDS: dexmedetomidin/NS 400mcg/100ml 100 ML IV SCH (22:04)
[2024-04-12] VITALS (25 sets, daily range): BP systolic 92–151; BP diastolic 43–100; PULSE 74–120; RESP 13–23; TEMP 100.5; O2SAT 76–100
[2024-04-12 02:52] LABS: PLATELET COUNT 65 X10'3 (140-440)
[2024-04-12 02:53] LABS: BASOPHILS % (AUTO) 0.4 % (0-1); EOSINOPHILS # (AUTO) 0.1 X10'3 (0-0.9); EOSINOPHILS % (AUTO) 0.9 % (0-6); HEMATOCRIT 30.2 % (35.0-45.0); HEMOGLOBIN 9.8 g/dl (12.0-16.0); LYMPHOCYTES # (AUTO) 0.6 X10'3 (1.1-4.8); LYMPHOCYTES % (AUTO) 6.3 % (21-51); MEAN CORPUSCULAR HEMOGLOBIN 29.3 PG (27.0-31.0); MEAN CORPUSCULAR HGB CONC 32.4 g/dL (33.0-36.5); MEAN CORPUSCULAR VOLUME 90.2 FL (78-98); MONOCYTES # (AUTO) 0.5 X10'3 (0-0.9); MONOCYTES % (AUTO) 4.6 % (2-12); NEUTROPHILS # (AUTO) 8.8 X10'3 (1.8-7.7); NEUTROPHILS % (AUTO) 87.8 % (42-75); RED BLOOD COUNT 3.35 X10'6 (4.20-5.60); RED CELL DISTRIBUTION WIDTH 15.8 % (11.5-14.5)
[2024-04-12 03:06] LABS: ALANINE AMINOTRANSFERASE 39 U/L (12-78); ALBUMIN/GLOBULIN RATIO 0.9 (1.1-1.5); ALKALINE PHOSPHATASE 60 IU/L (46-116); ANION GAP 3 (8-16); ASPARTATE AMINO TRANSFERASE 87 U/L (10-37); BILIRUBIN,TOTAL 0.9 MG/DL (0.1-1.0); BLOOD UREA NITROGEN 7 MG/DL (7-18); CALCIUM 7.2 MG/DL (8.5-10.1); CHLORIDE 107 MMOL/L (99-107); GLUCOSE 139 MG/DL (70-104); MAGNESIUM 2.6 MG/DL (1.5-2.4); PHOSPHORUS 3.1 MG/DL (2.3-4.5); POTASSIUM 3.2 MMOL/L (3.5-5.1); SODIUM 138 MMOL/L (135-145); TOTAL CARBON DIOXIDE 27.8 MMOL/L (24-32); TOTAL PROTEIN 4.3 G/DL (6.4-8.2); eCRCL 60 ML/MIN; eGFR > 90 ML/MIN
[2024-04-12] MEDS: aspirin 81mg tab.chew PO SCH (08:33)
[2024-04-12] MEDS: ferrous sulfate 325mg tablet PO SCH (08:34)
[2024-04-12] MEDS: lisinopril 20mg tablet PO SCH (08:34)
[2024-04-12] MEDS: docusate sod 100mg capsule PO SCH (08:35)
[2024-04-12] MEDS: atorvastatin 20mg tablet PO SCH (08:35)
[2024-04-12] MEDS: clopidogrel 75mg tablet PO SCH (08:35)
[2024-04-12] MEDS: furosemide 20 MG/2 ML vial IV SCH (10:52)
[2024-04-13] VITALS (23 sets, daily range): BP systolic 96–144; BP diastolic 42–88; PULSE 89–115; RESP 13–27; O2SAT 91–100
[2024-04-13 02:43] LABS: BASOPHILS % (AUTO) 0.3 % (0-1); EOSINOPHILS % (AUTO) 0.5 % (0-6); HEMATOCRIT 31.4 % (35.0-45.0); HEMOGLOBIN 10.5 g/dl (12.0-16.0); LYMPHOCYTES # (AUTO) 0.7 X10'3 (1.1-4.8); LYMPHOCYTES % (AUTO) 7.3 % (21-51); MEAN CORPUSCULAR HEMOGLOBIN 29.9 PG (27.0-31.0); MEAN CORPUSCULAR HGB CONC 33.3 g/dL (33.0-36.5); MEAN CORPUSCULAR VOLUME 89.7 FL (78-98); MEAN PLATELET VOLUME 9.6 FL (7.4-10.4); MONOCYTES # (AUTO) 0.4 X10'3 (0-0.9); MONOCYTES % (AUTO) 4.1 % (2-12); NEUTROPHILS # (AUTO) 8.6 X10'3 (1.8-7.7); NEUTROPHILS % (AUTO) 87.8 % (42-75); PLATELET COUNT 63 X10'3 (140-440); RED CELL DISTRIBUTION WIDTH 15.6 % (11.5-14.5); WHITE BLOOD COUNT 9.8 X10'3 (4.5-11.0)
[2024-04-13 02:57] LABS: ALANINE AMINOTRANSFERASE 47 U/L (12-78); ALBUMIN 2.1 G/DL (3.4-5.0); ALBUMIN/GLOBULIN RATIO 0.8 (1.1-1.5); ALKALINE PHOSPHATASE 93 IU/L (46-116); ANION GAP 4 (8-16); ASPARTATE AMINO TRANSFERASE 95 U/L (10-37); BILIRUBIN,TOTAL 1.6 MG/DL (0.1-1.0); BLOOD UREA NITROGEN 8 MG/DL (7-18); BUN/CREATININE RATIO 12.1 (10.0-20.0); CALCIUM 7.7 MG/DL (8.5-10.1); CHLORIDE 102 MMOL/L (99-107); CREATININE 0.66 MG/DL (0.40-0.90); GLUCOSE 86 MG/DL (70-104); MAGNESIUM 1.6 MG/DL (1.5-2.4); PHOSPHORUS 3.3 MG/DL (2.3-4.5); POTASSIUM 3.4 MMOL/L (3.5-5.1); SODIUM 139 MMOL/L (135-145); TOTAL PROTEIN 4.8 G/DL (6.4-8.2); eCRCL 45 ML/MIN; eGFR 87 ML/MIN
[2024-04-13] MEDS: magnesium sulf-water 4G/100mL 100 ML IV PRN (03:10)
[2024-04-13] MEDS: lactose-reduced food (Ensure Enlive) - 237ml bottle PO SCH (13:08)
[2024-04-13] MEDS: ferrous sulfate 325mg tablet PO SCH (20:39)
[2024-04-13] MEDS: potassium Cl 40MEQ/270ML bag 270 ML IV PRN (20:42)
[2024-04-14] VITALS (14 sets, daily range): BP systolic 99–135; BP diastolic 41–94; PULSE 96–118; RESP 14–24; TEMP 97.6–98; O2SAT 92–99
[2024-04-14 02:56] LABS: BASOPHILS % (AUTO) 0.4 % (0-1); EOSINOPHILS # (AUTO) 0.1 X10'3 (0-0.9); EOSINOPHILS % (AUTO) 0.6 % (0-6); HEMATOCRIT 27.8 % (35.0-45.0); HEMOGLOBIN 9.2 g/dl (12.0-16.0); LYMPHOCYTES % (AUTO) 10.7 % (21-51); MEAN CORPUSCULAR HEMOGLOBIN 29.8 PG (27.0-31.0); MEAN CORPUSCULAR HGB CONC 32.9 g/dL (33.0-36.5); MEAN CORPUSCULAR VOLUME 90.7 FL (78-98); MEAN PLATELET VOLUME 10.6 FL (7.4-10.4); MONOCYTES # (AUTO) 0.3 X10'3 (0-0.9); MONOCYTES % (AUTO) 3.7 % (2-12); NEUTROPHILS # (AUTO) 7.7 X10'3 (1.8-7.7); NEUTROPHILS % (AUTO) 84.6 % (42-75); PLATELET COUNT 76 X10'3 (140-440); RED BLOOD COUNT 3.07 X10'6 (4.20-5.60); RED CELL DISTRIBUTION WIDTH 15.5 % (11.5-14.5); WHITE BLOOD COUNT 9.1 X10'3 (4.5-11.0)
[2024-04-14 03:53] LABS: ALANINE AMINOTRANSFERASE 40 U/L (12-78); ALBUMIN/GLOBULIN RATIO 0.6 (1.1-1.5); ALKALINE PHOSPHATASE 76 IU/L (46-116); ANION GAP 5 (8-16); ASPARTATE AMINO TRANSFERASE 61 U/L (10-37); BLOOD UREA NITROGEN 26 MG/DL (7-18); BUN/CREATININE RATIO 39.4 (10.0-20.0); CALCIUM 7.8 MG/DL (8.5-10.1); CHLORIDE 100 MMOL/L (99-107); CREATININE 0.66 MG/DL (0.40-0.90); GLUCOSE 116 MG/DL (70-104); MAGNESIUM 2.2 MG/DL (1.5-2.4); PHOSPHORUS 3.3 MG/DL (2.3-4.5); POTASSIUM 3.8 MMOL/L (3.5-5.1); SODIUM 137 MMOL/L (135-145); TOTAL PROTEIN 5.1 G/DL (6.4-8.2); eCRCL 45 ML/MIN; eGFR 87 ML/MIN
[2024-04-14 04:28] LABS: TOTAL CELLS COUNTED 100
[2024-04-14 04:29] LABS: ANISOCYTOSIS 1+; HYPOCHROMASIA 1+; PLATELET ESTIMATE DECREASED
[2024-04-14 04:30] LABS: LARGE PLATELETS FEW
[2024-04-14 04:31] LABS: SCHISTOCYTES FEW
[2024-04-15] VITALS (49 sets, daily range): BP systolic 85–164; BP diastolic 32–67; PULSE 86–113; RESP 15–29; TEMP 98.8–99.2; O2SAT 91–100
[2024-04-15 06:40] LABS: BASOPHILS % (AUTO) 0.6 % (0-1); EOSINOPHILS % (AUTO) 0.1 % (0-6); LYMPHOCYTES # (AUTO) 0.6 X10'3 (1.1-4.8); LYMPHOCYTES % (AUTO) 10.7 % (21-51); MEAN CORPUSCULAR HEMOGLOBIN 29.7 PG (27.0-31.0); MEAN CORPUSCULAR HGB CONC 32.2 g/dL (33.0-36.5); MEAN CORPUSCULAR VOLUME 92.2 FL (78-98); MEAN PLATELET VOLUME 11.1 FL (7.4-10.4); MONOCYTES # (AUTO) 0.3 X10'3 (0-0.9); MONOCYTES % (AUTO) 4.4 % (2-12); NEUTROPHILS # (AUTO) 5.1 X10'3 (1.8-7.7); NEUTROPHILS % (AUTO) 84.2 % (42-75); PLATELET COUNT 115 X10'3 (140-440); RED BLOOD COUNT 2.12 X10'6 (4.20-5.60); RED CELL DISTRIBUTION WIDTH 15.6 % (11.5-14.5)
[2024-04-15] MEDS: albumin (Human) 5% 250ml 250 ML IV STA ×2 (06:40→06:41)
[2024-04-15 06:59] LABS: HEMOGLOBIN 6.3 g/dl (12.0-16.0)
[2024-04-15 07:00] LABS: HEMATOCRIT 19.6 % (35.0-45.0)
[2024-04-15 07:02] LABS: ALANINE AMINOTRANSFERASE 78 U/L (12-78); ALBUMIN 1.7 G/DL (3.4-5.0); ALBUMIN/GLOBULIN RATIO 0.6 (1.1-1.5); ALKALINE PHOSPHATASE 55 IU/L (46-116); ANION GAP 9 (8-16); ASPARTATE AMINO TRANSFERASE 161 U/L (10-37); BILIRUBIN,TOTAL 1.3 MG/DL (0.1-1.0); BLOOD UREA NITROGEN 39 MG/DL (7-18); BUN/CREATININE RATIO 38.6 (10.0-20.0); CALCIUM 7.6 MG/DL (8.5-10.1); CHLORIDE 103 MMOL/L (99-107); CREATININE 1.01 MG/DL (0.40-0.90); GLUCOSE 113 MG/DL (70-104); MAGNESIUM 2.4 MG/DL (1.5-2.4); PHOSPHORUS 5.5 MG/DL (2.3-4.5); POTASSIUM 4.7 MMOL/L (3.5-5.1); SODIUM 141 MMOL/L (135-145); TOTAL CARBON DIOXIDE 28.9 MMOL/L (24-32); TOTAL PROTEIN 4.6 G/DL (6.4-8.2); eCRCL 30 ML/MIN; eGFR 53 ML/MIN
[2024-04-15 07:40] LABS: ANISOCYTOSIS 1+; LARGE PLATELETS MODERATE; PLATELET ESTIMATE DECREASED
[2024-04-15] MEDS: octreotide inj. 500 MCG in normal saline 100ml IV soln 97.5 ML IV SCH (07:45)
[2024-04-15] MEDS ORDERED: pantoprazole 40mg IV 80 MG in normal saline 100ml IV soln 100 ML IV ONE (07:45)
[2024-04-15] MEDS: dextrose 5%-lactated ringers 1,000 ML IV SCH (07:59)
[2024-04-15] MEDS: pantoprazole 40 MG vial IV ONE (07:59)
[2024-04-15] MEDS: pantoprazole 40MG/NS 100ML BAG 100 ML IV SCH (08:46)
[2024-04-15] MEDS ORDERED: LIDOcaine 2% Viscous 15ml cup ONE (12:31)
[2024-04-15] MEDS ORDERED: fentaNYL/PF 50MCG/1 ML 2ML syringe ONE (12:31)
[2024-04-15] MEDS ORDERED: MIDAZolam 1 MG/ML 5ML VIAL ONE (12:31)
[2024-04-15] MEDS ORDERED: epiNEPHrine 0.1mg/ml 10ml syringe ONE (12:31)
[2024-04-15 16:46] LABS: HEMATOCRIT 27.3 % (35.0-45.0); HEMOGLOBIN 9.5 g/dl (12.0-16.0); MEAN CORPUSCULAR HEMOGLOBIN 31.3 PG (27.0-31.0)
[2024-04-15 16:48] LABS: MEAN CORPUSCULAR HGB CONC 34.7 g/dL (33.0-36.5); MEAN CORPUSCULAR VOLUME 90.2 FL (78-98); MEAN PLATELET VOLUME 10.8 FL (7.4-10.4); PLATELET COUNT 66 X10'3 (140-440); RED BLOOD COUNT 3.03 X10'6 (4.20-5.60); RED CELL DISTRIBUTION WIDTH 14.1 % (11.5-14.5); WHITE BLOOD COUNT 5.7 X10'3 (4.5-11.0)
[2024-04-15] MEDS: ringers solution, lacted 1,000 ML IV SCH (17:08)
[2024-04-15 22:19] LABS: HEMATOCRIT 27.4 % (35.0-45.0); HEMOGLOBIN 9.3 g/dl (12.0-16.0); MEAN CORPUSCULAR HEMOGLOBIN 30.4 PG (27.0-31.0); MEAN CORPUSCULAR HGB CONC 33.9 g/dL (33.0-36.5); MEAN CORPUSCULAR VOLUME 89.9 FL (78-98); MEAN PLATELET VOLUME 10.9 FL (7.4-10.4); PLATELET COUNT 76 X10'3 (140-440); RED BLOOD COUNT 3.04 X10'6 (4.20-5.60); WHITE BLOOD COUNT 6.2 X10'3 (4.5-11.0)
[2024-04-15] MEDS: pantoprazole 40 MG vial IV SCH (22:37)
[2024-04-16] VITALS (24 sets, daily range): BP systolic 120–158; BP diastolic 47–98; PULSE 81–100; RESP 14–33; O2SAT 83–99
[2024-04-16 03:28] LABS: BASOPHILS % (AUTO) 0.4 % (0-1); EOSINOPHILS # (AUTO) 0.1 X10'3 (0-0.9); HEMATOCRIT 26.1 % (35.0-45.0); HEMOGLOBIN 8.8 g/dl (12.0-16.0); LYMPHOCYTES # (AUTO) 0.8 X10'3 (1.1-4.8); LYMPHOCYTES % (AUTO) 11.1 % (21-51); MEAN CORPUSCULAR HEMOGLOBIN 30.5 PG (27.0-31.0); MEAN CORPUSCULAR HGB CONC 33.7 g/dL (33.0-36.5); MEAN CORPUSCULAR VOLUME 90.5 FL (78-98); MEAN PLATELET VOLUME 10.9 FL (7.4-10.4); MONOCYTES # (AUTO) 0.2 X10'3 (0-0.9); MONOCYTES % (AUTO) 3.3 % (2-12); NEUTROPHILS % (AUTO) 84.2 % (42-75); PLATELET COUNT 79 X10'3 (140-440); RED BLOOD COUNT 2.88 X10'6 (4.20-5.60); WHITE BLOOD COUNT 7.2 X10'3 (4.5-11.0)
[2024-04-16 03:43] LABS: ALANINE AMINOTRANSFERASE 656 U/L (12-78); ALBUMIN 1.8 G/DL (3.4-5.0); ALBUMIN/GLOBULIN RATIO 0.8 (1.1-1.5); ALKALINE PHOSPHATASE 45 IU/L (46-116); ANION GAP 1 (8-16); BILIRUBIN,TOTAL 2.5 MG/DL (0.1-1.0); BLOOD UREA NITROGEN 33 MG/DL (7-18); BUN/CREATININE RATIO 51.6 (10.0-20.0); CALCIUM 7.3 MG/DL (8.5-10.1); CHLORIDE 111 MMOL/L (99-107); CREATININE 0.64 MG/DL (0.40-0.90); GLUCOSE 93 MG/DL (70-104); MAGNESIUM 3.4 MG/DL (1.5-2.4); PHOSPHORUS 2.5 MG/DL (2.3-4.5); POTASSIUM 3.3 MMOL/L (3.5-5.1); SODIUM 144 MMOL/L (135-145); TOTAL CARBON DIOXIDE 31.9 MMOL/L (24-32); eCRCL 47 ML/MIN; eGFR 90 ML/MIN
[2024-04-16 03:44] LABS: ASPARTATE AMINO TRANSFERASE 1024 U/L (10-37)
[2024-04-16 04:58] LABS: LARGE PLATELETS FEW; PLATELET ESTIMATE DECREASED
[2024-04-16 05:03] LABS: POIKILOCYTOSIS FEW
[2024-04-16 09:43] LABS: HEMATOCRIT 28.1 % (35.0-45.0); HEMOGLOBIN 9.5 g/dl (12.0-16.0); MEAN CORPUSCULAR HEMOGLOBIN 30.6 PG (27.0-31.0); MEAN CORPUSCULAR HGB CONC 33.8 g/dL (33.0-36.5); MEAN CORPUSCULAR VOLUME 90.5 FL (78-98); MEAN PLATELET VOLUME 10.8 FL (7.4-10.4); PLATELET COUNT 86 X10'3 (140-440); RED CELL DISTRIBUTION WIDTH 14.4 % (11.5-14.5); WHITE BLOOD COUNT 7.5 X10'3 (4.5-11.0)
[2024-04-16 16:30] LABS: HEMATOCRIT 25.7 % (35.0-45.0); HEMOGLOBIN 8.8 g/dl (12.0-16.0); MEAN CORPUSCULAR HEMOGLOBIN 30.9 PG (27.0-31.0); MEAN CORPUSCULAR HGB CONC 34.1 g/dL (33.0-36.5); MEAN CORPUSCULAR VOLUME 90.6 FL (78-98); MEAN PLATELET VOLUME 10.9 FL (7.4-10.4); PLATELET COUNT 81 X10'3 (140-440); RED BLOOD COUNT 2.84 X10'6 (4.20-5.60); RED CELL DISTRIBUTION WIDTH 14.5 % (11.5-14.5); WHITE BLOOD COUNT 6.6 X10'3 (4.5-11.0)
[2024-04-16] MEDS: lactose-reduced food (Ensure Enlive) - 237ml bottle PO SCH (18:31)
[2024-04-16 22:18] LABS: HEMATOCRIT 24.8 % (35.0-45.0); HEMOGLOBIN 8.4 g/dl (12.0-16.0); MEAN CORPUSCULAR HEMOGLOBIN 30.7 PG (27.0-31.0); MEAN CORPUSCULAR HGB CONC 33.8 g/dL (33.0-36.5); MEAN CORPUSCULAR VOLUME 90.7 FL (78-98); MEAN PLATELET VOLUME 11.1 FL (7.4-10.4); PLATELET COUNT 82 X10'3 (140-440); RED BLOOD COUNT 2.73 X10'6 (4.20-5.60); RED CELL DISTRIBUTION WIDTH 14.1 % (11.5-14.5); WHITE BLOOD COUNT 6.2 X10'3 (4.5-11.0)
[2024-04-17] VITALS (16 sets, daily range): BP systolic 121–164; BP diastolic 41–63; PULSE 71–101; RESP 14–22; TEMP 97.8–98.5; O2SAT 91–97
[2024-04-17 04:19] LABS: HEMATOCRIT 23.1 % (35.0-45.0); HEMOGLOBIN 7.7 g/dl (12.0-16.0); MEAN CORPUSCULAR HEMOGLOBIN 30.7 PG (27.0-31.0); MEAN CORPUSCULAR HGB CONC 33.2 g/dL (33.0-36.5); MEAN CORPUSCULAR VOLUME 92.4 FL (78-98); MEAN PLATELET VOLUME 10.6 FL (7.4-10.4); PLATELET COUNT 74 X10'3 (140-440); RED CELL DISTRIBUTION WIDTH 14.4 % (11.5-14.5); WHITE BLOOD COUNT 4.4 X10'3 (4.5-11.0)
[2024-04-17 04:38] LABS: ALANINE AMINOTRANSFERASE 802 U/L (12-78); ALBUMIN 1.6 G/DL (3.4-5.0); ALBUMIN/GLOBULIN RATIO 0.7 (1.1-1.5); ALKALINE PHOSPHATASE 50 IU/L (46-116); ANION GAP 4 (8-16); BILIRUBIN,TOTAL 1.5 MG/DL (0.1-1.0); BLOOD UREA NITROGEN 16 MG/DL (7-18); CALCIUM 7.1 MG/DL (8.5-10.1); CHLORIDE 108 MMOL/L (99-107); CREATININE 0.64 MG/DL (0.40-0.90); GLUCOSE 81 MG/DL (70-104); MAGNESIUM 1.7 MG/DL (1.5-2.4); PHOSPHORUS 1.9 MG/DL (2.3-4.5); POTASSIUM 3.5 MMOL/L (3.5-5.1); SODIUM 140 MMOL/L (135-145); TOTAL CARBON DIOXIDE 27.8 MMOL/L (24-32); TOTAL PROTEIN 3.9 G/DL (6.4-8.2); eCRCL 47 ML/MIN; eGFR 90 ML/MIN
[2024-04-17 04:40] LABS: ASPARTATE AMINO TRANSFERASE 1075 U/L (10-37)
[2024-04-17 12:10] LABS: HEMOGLOBIN 9.2 g/dl (12.0-16.0); RED CELL DISTRIBUTION WIDTH 14.6 % (11.5-14.5)
[2024-04-17 12:11] LABS: HEMATOCRIT 27.3 % (35.0-45.0); MEAN CORPUSCULAR HEMOGLOBIN 31.2 PG (27.0-31.0); MEAN CORPUSCULAR HGB CONC 33.7 g/dL (33.0-36.5); MEAN CORPUSCULAR VOLUME 92.8 FL (78-98); PLATELET COUNT 87 X10'3 (140-440); RED BLOOD COUNT 2.94 X10'6 (4.20-5.60)
[2024-04-17] MEDS: furosemide 20 MG/2 ML vial IV SCH (13:30)
[2024-04-17] MEDS ORDERED: furosemide 20 MG/2 ML vial IV SCH (20:00)
[2024-04-18] VITALS (7 sets, daily range): BP systolic 115–156; BP diastolic 41–53; PULSE 63–92; RESP 12–19; TEMP 97.2–97.8; O2SAT 94–100
[2024-04-18 06:49] LABS: BASOPHILS % (AUTO) 0.6 % (0-1); EOSINOPHILS # (AUTO) 0.1 X10'3 (0-0.9); EOSINOPHILS % (AUTO) 2.5 % (0-6); HEMATOCRIT 27.6 % (35.0-45.0); HEMOGLOBIN 9.2 g/dl (12.0-16.0); LYMPHOCYTES # (AUTO) 0.6 X10'3 (1.1-4.8); LYMPHOCYTES % (AUTO) 13.6 % (21-51); MEAN CORPUSCULAR HEMOGLOBIN 30.8 PG (27.0-31.0); MEAN CORPUSCULAR HGB CONC 33.2 g/dL (33.0-36.5); MEAN CORPUSCULAR VOLUME 92.5 FL (78-98); MEAN PLATELET VOLUME 11.2 FL (7.4-10.4); MONOCYTES # (AUTO) 0.2 X10'3 (0-0.9); NEUTROPHILS # (AUTO) 3.5 X10'3 (1.8-7.7); NEUTROPHILS % (AUTO) 78.3 % (42-75); PLATELET COUNT 87 X10'3 (140-440); RED BLOOD COUNT 2.98 X10'6 (4.20-5.60); RED CELL DISTRIBUTION WIDTH 14.4 % (11.5-14.5); WHITE BLOOD COUNT 4.5 X10'3 (4.5-11.0)
[2024-04-18 07:14] LABS: ALANINE AMINOTRANSFERASE 945 U/L (12-78); ALBUMIN 1.9 G/DL (3.4-5.0); ALBUMIN/GLOBULIN RATIO 0.7 (1.1-1.5); ALKALINE PHOSPHATASE 66 IU/L (46-116); ANION GAP 5 (8-16); ASPARTATE AMINO TRANSFERASE 793 U/L (10-37); BILIRUBIN,TOTAL 1.6 MG/DL (0.1-1.0); BLOOD UREA NITROGEN 12 MG/DL (7-18); BUN/CREATININE RATIO 16.7 (10.0-20.0); CALCIUM 7.2 MG/DL (8.5-10.1); CHLORIDE 106 MMOL/L (99-107); CREATININE 0.72 MG/DL (0.40-0.90); GLUCOSE 101 MG/DL (70-104); MAGNESIUM 1.7 MG/DL (1.5-2.4); PHOSPHORUS 2.3 MG/DL (2.3-4.5); SODIUM 139 MMOL/L (135-145); TOTAL CARBON DIOXIDE 28.1 MMOL/L (24-32); TOTAL PROTEIN 4.7 G/DL (6.4-8.2); eCRCL 42 ML/MIN; eGFR 78 ML/MIN
[2024-04-18 07:24] LABS: ANISOCYTOSIS 1+; HYPOCHROMASIA 1+; LARGE PLATELETS FEW; PLATELET ESTIMATE DECREASED; POTASSIUM 2.8 MMOL/L (3.5-5.1)
[2024-04-18 07:25] LABS: POLYCHROMASIA FEW
[2024-04-18] MEDS ORDERED: potassium Cl 20 mEq SR tablet PO PRN (11:10)
[2024-04-18] MEDS ORDERED: magnesium sulf-water 2g/50mL 50 ML IV PRN (11:10)
[2024-04-18] MEDS ORDERED: magnesium sulf-water 4G/100mL 100 ML IV PRN (11:10)
[2024-04-18] MEDS ORDERED: potassium Cl 40MEQ/1/2NS 520ml 520 ML IV PRN (11:10)
[2024-04-18] MEDS: potassium Cl 20 mEq SR tablet PO PRN (13:19)
[2024-04-18] MEDS: K and/or MAG REPLACEMENT MC SCH (20:00)
[2024-04-19 02:00] VITALS: BP 161/71; PULSE 81; RESP 18; TEMP 97.9; O2SAT 100
[2024-04-19 06:00] VITALS: BP 136/106; PULSE 91; RESP 12; TEMP 98.3; O2SAT 96
[2024-04-19 06:38] LABS: BASOPHILS % (AUTO) 0.7 % (0-1); HEMOGLOBIN 10.3 g/dl (12.0-16.0); LYMPHOCYTES # (AUTO) 0.5 X10'3 (1.1-4.8); MEAN CORPUSCULAR HEMOGLOBIN 31.5 PG (27.0-31.0); MEAN CORPUSCULAR HGB CONC 33.3 g/dL (33.0-36.5); NEUTROPHILS # (AUTO) 3.5 X10'3 (1.8-7.7); RED BLOOD COUNT 3.27 X10'6 (4.20-5.60); RED CELL DISTRIBUTION WIDTH 14.7 % (11.5-14.5)
[2024-04-19 06:41] LABS: EOSINOPHILS # (AUTO) 0.2 X10'3 (0-0.9); EOSINOPHILS % (AUTO) 3.4 % (0-6); HEMATOCRIT 30.8 % (35.0-45.0); LYMPHOCYTES % (AUTO) 12.3 % (21-51); MEAN CORPUSCULAR VOLUME 94.4 FL (78-98); MEAN PLATELET VOLUME 11.1 FL (7.4-10.4); MONOCYTES # (AUTO) 0.2 X10'3 (0-0.9); MONOCYTES % (AUTO) 5.5 % (2-12); NEUTROPHILS % (AUTO) 78.1 % (42-75); PLATELET COUNT 94 X10'3 (140-440); WHITE BLOOD COUNT 4.5 X10'3 (4.5-11.0)
[2024-04-19 06:56] LABS: ANION GAP 4 (8-16); BLOOD UREA NITROGEN 10 MG/DL (7-18); BUN/CREATININE RATIO 14.1 (10.0-20.0); CALCIUM 7.6 MG/DL (8.5-10.1); CHLORIDE 106 MMOL/L (99-107); CREATININE 0.71 MG/DL (0.40-0.90); GLUCOSE 77 MG/DL (70-104); PHOSPHORUS 2.5 MG/DL (2.3-4.5); POTASSIUM 4.2 MMOL/L (3.5-5.1); SODIUM 137 MMOL/L (135-145); TOTAL CARBON DIOXIDE 26.6 MMOL/L (24-32); eCRCL 42 ML/MIN; eGFR 80 ML/MIN
[2024-04-19 06:57] LABS: ALANINE AMINOTRANSFERASE 636 U/L (12-78); ALBUMIN 2.1 G/DL (3.4-5.0); ALBUMIN/GLOBULIN RATIO 0.6 (1.1-1.5); ALKALINE PHOSPHATASE 71 IU/L (46-116); ASPARTATE AMINO TRANSFERASE 241 U/L (10-37); BILIRUBIN,TOTAL 1.4 MG/DL (0.1-1.0); MAGNESIUM 2.8 MG/DL (1.5-2.4); TOTAL PROTEIN 5.4 G/DL (6.4-8.2)
[2024-04-19 07:55] LABS: LARGE PLATELETS MODERATE; PLATELET ESTIMATE DECREASED
[2024-04-19 08:00] VITALS: RESP 20; O2SAT 100
[2024-04-19 10:30] VITALS: BP 147/94; PULSE 91; RESP 16; TEMP 98.1; O2SAT 100
[2024-04-19 15:00] VITALS: BP 109/37; PULSE 47; RESP 16; TEMP 98.3; O2SAT 95
[2024-04-19] MEDS: amox tr/potassium clavulanate 875/125mg TAB PO SCH (17:30)
[2024-04-20] VITALS (7 sets, daily range): BP systolic 134–179; BP diastolic 53–78; PULSE 79–114; RESP 18–21; TEMP 97–98.7; O2SAT 91–99
[2024-04-20 06:20] LABS: EOSINOPHILS # (AUTO) 0.1 X10'3 (0-0.9); HEMOGLOBIN 10.3 g/dl (12.0-16.0); LYMPHOCYTES # (AUTO) 0.7 X10'3 (1.1-4.8); LYMPHOCYTES % (AUTO) 14.6 % (21-51); MEAN CORPUSCULAR HEMOGLOBIN 31.3 PG (27.0-31.0); MONOCYTES # (AUTO) 0.3 X10'3 (0-0.9); NEUTROPHILS # (AUTO) 3.5 X10'3 (1.8-7.7); NEUTROPHILS % (AUTO) 76.6 % (42-75)
[2024-04-20 06:22] LABS: BASOPHILS % (AUTO) 0.9 % (0-1); HEMATOCRIT 31.1 % (35.0-45.0); MEAN CORPUSCULAR VOLUME 94.8 FL (78-98); MEAN PLATELET VOLUME 11.4 FL (7.4-10.4); MONOCYTES % (AUTO) 5.9 % (2-12); PLATELET COUNT 113 X10'3 (140-440); RED BLOOD COUNT 3.28 X10'6 (4.20-5.60); RED CELL DISTRIBUTION WIDTH 14.8 % (11.5-14.5); WHITE BLOOD COUNT 4.6 X10'3 (4.5-11.0)
[2024-04-20 06:43] LABS: ALANINE AMINOTRANSFERASE 429 U/L (12-78); ALBUMIN 2.3 G/DL (3.4-5.0); ALBUMIN/GLOBULIN RATIO 0.7 (1.1-1.5); ALKALINE PHOSPHATASE 78 IU/L (46-116); ANION GAP 8 (8-16); ASPARTATE AMINO TRANSFERASE 103 U/L (10-37); BILIRUBIN,TOTAL 1.2 MG/DL (0.1-1.0); BLOOD UREA NITROGEN 10 MG/DL (7-18); BUN/CREATININE RATIO 15.2 (10.0-20.0); CALCIUM 7.9 MG/DL (8.5-10.1); CHLORIDE 106 MMOL/L (99-107); CREATININE 0.66 MG/DL (0.40-0.90); GLUCOSE 84 MG/DL (70-104); PHOSPHORUS 2.7 MG/DL (2.3-4.5); POTASSIUM 3.5 MMOL/L (3.5-5.1); SODIUM 139 MMOL/L (135-145); TOTAL CARBON DIOXIDE 24.9 MMOL/L (24-32); TOTAL PROTEIN 5.8 G/DL (6.4-8.2); eCRCL 45 ML/MIN; eGFR 87 ML/MIN
[2024-04-20 07:19] LABS: LARGE PLATELETS FEW; PLATELET ESTIMATE DECREASED
[2024-04-20] MEDS ORDERED: GADOTERATE MEGLUMINE 7.5 MMOL/15 ML VIAL IV ONE (19:12)
[2024-04-21] VITALS (10 sets, daily range): BP systolic 98–197; BP diastolic 45–86; PULSE 68–97; RESP 16–22; TEMP 96.6–98.7; O2SAT 94–100
[2024-04-21 04:57] LABS: EOSINOPHILS # (AUTO) 0.1 X10'3 (0-0.9); EOSINOPHILS % (AUTO) 1.4 % (0-6); HEMATOCRIT 28.5 % (35.0-45.0); HEMOGLOBIN 9.2 g/dl (12.0-16.0); LYMPHOCYTES # (AUTO) 0.7 X10'3 (1.1-4.8); MEAN CORPUSCULAR HEMOGLOBIN 30.7 PG (27.0-31.0); MEAN CORPUSCULAR HGB CONC 32.5 g/dL (33.0-36.5); MEAN CORPUSCULAR VOLUME 94.6 FL (78-98); MEAN PLATELET VOLUME 10.5 FL (7.4-10.4); MONOCYTES # (AUTO) 0.2 X10'3 (0-0.9); MONOCYTES % (AUTO) 6.9 % (2-12); NEUTROPHILS # (AUTO) 2.4 X10'3 (1.8-7.7); NEUTROPHILS % (AUTO) 69.7 % (42-75); PLATELET COUNT 116 X10'3 (140-440); RED BLOOD COUNT 3.01 X10'6 (4.20-5.60); RED CELL DISTRIBUTION WIDTH 15.3 % (11.5-14.5); WHITE BLOOD COUNT 3.5 X10'3 (4.5-11.0)
[2024-04-21] MEDS: magnesium Cl slow-release 64mg tablet PO PRN (10:22)
[2024-04-22] VITALS (9 sets, daily range): BP systolic 84–129; BP diastolic 35–56; PULSE 67–106; RESP 14–27; TEMP 97.1–98.9; O2SAT 95–99
[2024-04-22 08:03] LABS: EOSINOPHILS # (AUTO) 0.1 X10'3 (0-0.9); MONOCYTES # (AUTO) 0.3 X10'3 (0-0.9); NEUTROPHILS # (AUTO) 2.5 X10'3 (1.8-7.7); RED CELL DISTRIBUTION WIDTH 15.6 % (11.5-14.5)
[2024-04-22 08:04] LABS: BASOPHILS % (AUTO) 0.7 % (0-1); EOSINOPHILS % (AUTO) 2.3 % (0-6); HEMATOCRIT 24.5 % (35.0-45.0); LYMPHOCYTES % (AUTO) 26.2 % (21-51); MEAN CORPUSCULAR HEMOGLOBIN 31.2 PG (27.0-31.0); MEAN CORPUSCULAR HGB CONC 32.5 g/dL (33.0-36.5); MEAN PLATELET VOLUME 10.9 FL (7.4-10.4); MONOCYTES % (AUTO) 6.7 % (2-12); NEUTROPHILS % (AUTO) 64.1 % (42-75); PLATELET COUNT 119 X10'3 (140-440); RED BLOOD COUNT 2.56 X10'6 (4.20-5.60)
[2024-04-23 02:00] VITALS: BP 111/58; PULSE 96; RESP 28; TEMP 98; O2SAT 98
[2024-04-23 07:21] VITALS: BP 159/60; PULSE 86; RESP 18; TEMP 97; O2SAT 98
[2024-04-23 08:00] VITALS: RESP 18; O2SAT 98
[2024-04-23 18:53] VITALS: BP 113/50; PULSE 95; RESP 17; TEMP 98.5; O2SAT 93
[2024-04-23 20:00] VITALS: RESP 18; O2SAT 97
[2024-04-24] VITALS (10 sets, daily range): BP systolic 111–141; BP diastolic 51–78; PULSE 88–106; RESP 16–22; TEMP 96.9–98.7; O2SAT 93–98
[2024-04-24 08:27] LABS: BASOPHILS % (AUTO) 1.1 % (0-1); EOSINOPHILS # (AUTO) 0.1 X10'3 (0-0.9); EOSINOPHILS % (AUTO) 3.2 % (0-6); HEMATOCRIT 23.7 % (35.0-45.0); HEMOGLOBIN 7.7 g/dl (12.0-16.0); LYMPHOCYTES # (AUTO) 0.8 X10'3 (1.1-4.8); LYMPHOCYTES % (AUTO) 25.1 % (21-51); MEAN CORPUSCULAR HEMOGLOBIN 30.9 PG (27.0-31.0); MEAN CORPUSCULAR HGB CONC 32.4 g/dL (33.0-36.5); MEAN CORPUSCULAR VOLUME 95.2 FL (78-98); MEAN PLATELET VOLUME 10.8 FL (7.4-10.4); MONOCYTES # (AUTO) 0.2 X10'3 (0-0.9); MONOCYTES % (AUTO) 7.1 % (2-12); NEUTROPHILS % (AUTO) 63.5 % (42-75); PLATELET COUNT 152 X10'3 (140-440); RED BLOOD COUNT 2.49 X10'6 (4.20-5.60); RED CELL DISTRIBUTION WIDTH 15.9 % (11.5-14.5); WHITE BLOOD COUNT 3.2 X10'3 (4.5-11.0)
[2024-04-24 08:33] LABS: ALANINE AMINOTRANSFERASE 106 U/L (12-78); ALBUMIN/GLOBULIN RATIO 0.6 (1.1-1.5); ALKALINE PHOSPHATASE 76 IU/L (46-116); ANION GAP 5 (8-16); ASPARTATE AMINO TRANSFERASE 41 U/L (10-37); BILIRUBIN,TOTAL 0.6 MG/DL (0.1-1.0); BLOOD UREA NITROGEN 20 MG/DL (7-18); BUN/CREATININE RATIO 33.9 (10.0-20.0); CHLORIDE 109 MMOL/L (99-107); CREATININE 0.59 MG/DL (0.40-0.90); GLUCOSE 93 MG/DL (70-104); POTASSIUM 3.6 MMOL/L (3.5-5.1); SODIUM 142 MMOL/L (135-145); TOTAL CARBON DIOXIDE 27.7 MMOL/L (24-32); TOTAL PROTEIN 5.6 G/DL (6.4-8.2); eCRCL 51 ML/MIN; eGFR > 90 ML/MIN
[2024-04-25] VITALS (7 sets, daily range): BP systolic 101–176; BP diastolic 39–67; PULSE 81–106; RESP 16–20; TEMP 97–98.8; O2SAT 92–99
[2024-04-26] VITALS (9 sets, daily range): BP systolic 98–147; BP diastolic 39–71; PULSE 84–101; RESP 10–18; TEMP 97–98.5; O2SAT 90–98
[2024-04-26 06:26] LABS: EOSINOPHILS # (AUTO) 0.1 X10'3 (0-0.9); HEMATOCRIT 22.8 % (35.0-45.0); HEMOGLOBIN 7.3 g/dl (12.0-16.0); LYMPHOCYTES # (AUTO) 1.3 X10'3 (1.1-4.8); LYMPHOCYTES % (AUTO) 38.5 % (21-51); MEAN CORPUSCULAR HGB CONC 31.9 g/dL (33.0-36.5); MEAN CORPUSCULAR VOLUME 97.2 FL (78-98); MEAN PLATELET VOLUME 10.5 FL (7.4-10.4); MONOCYTES # (AUTO) 0.3 X10'3 (0-0.9); MONOCYTES % (AUTO) 7.8 % (2-12); NEUTROPHILS # (AUTO) 1.7 X10'3 (1.8-7.7); NEUTROPHILS % (AUTO) 49.7 % (42-75); PLATELET COUNT 167 X10'3 (140-440); RED BLOOD COUNT 2.34 X10'6 (4.20-5.60); RED CELL DISTRIBUTION WIDTH 17.2 % (11.5-14.5); WHITE BLOOD COUNT 3.5 X10'3 (4.5-11.0)
[2024-04-26 06:51] LABS: ANION GAP 4 (8-16); BLOOD UREA NITROGEN 22 MG/DL (7-18); BUN/CREATININE RATIO 28.6 (10.0-20.0); CHLORIDE 108 MMOL/L (99-107); CREATININE 0.77 MG/DL (0.40-0.90); GLUCOSE 102 MG/DL (70-104); POTASSIUM 3.7 MMOL/L (3.5-5.1); SODIUM 142 MMOL/L (135-145); TOTAL CARBON DIOXIDE 30.3 MMOL/L (24-32); eCRCL 39 ML/MIN; eGFR 73 ML/MIN
[2024-04-26] MEDS: pantoprazole 40 MG vial IV SCH (08:00)
[2024-04-27 06:00] VITALS: BP 115/47; PULSE 58; RESP 13; TEMP 97.9; O2SAT 97
[2024-04-27 07:24] LABS: BASOPHILS % (AUTO) 0.6 % (0-1); EOSINOPHILS # (AUTO) 0.1 X10'3 (0-0.9); EOSINOPHILS % (AUTO) 1.3 % (0-6); HEMATOCRIT 24.1 % (35.0-45.0); HEMOGLOBIN 7.5 g/dl (12.0-16.0); LYMPHOCYTES # (AUTO) 1.2 X10'3 (1.1-4.8); LYMPHOCYTES % (AUTO) 27.7 % (21-51); MEAN CORPUSCULAR HEMOGLOBIN 30.3 PG (27.0-31.0); MEAN CORPUSCULAR HGB CONC 31.1 g/dL (33.0-36.5); MEAN CORPUSCULAR VOLUME 97.4 FL (78-98); MEAN PLATELET VOLUME 10.4 FL (7.4-10.4); MONOCYTES # (AUTO) 0.2 X10'3 (0-0.9); MONOCYTES % (AUTO) 4.8 % (2-12); NEUTROPHILS # (AUTO) 2.8 X10'3 (1.8-7.7); NEUTROPHILS % (AUTO) 65.6 % (42-75); PLATELET COUNT 178 X10'3 (140-440); RED BLOOD COUNT 2.48 X10'6 (4.20-5.60); WHITE BLOOD COUNT 4.2 X10'3 (4.5-11.0)
[2024-04-27 08:00] VITALS: RESP 13; O2SAT 97
[2024-04-27 09:01] VITALS: BP_SYST 115; PULSE 58
== END 2024-04-27 14:21 | disposition home health service (06) | DRG 163 ==
LOC: PAS IN 03-31 05:39 → CICU 2S 03-31 12:47 → PCU 3S 04-01 17:24 → CICU 2S 04-10 01:16 → ORTHO 4S 04-14 10:42 → CICU 2S 04-15 06:45 → PCU 3S 04-17 13:18
PROVIDERS: ADMIT Surgery; ATTEND Surgery
PROC: 0W9B30Z Drainage of Left Pleural Cavity with Drainage Device, Percutaneous Approach (ICD-10-PCS; 2024-03-31)
PROC: 8E0W4CZ Robotic Assisted Procedure of Trunk Region, Percutaneous Endoscopic Approach (ICD-10-PCS; 2024-03-31)
PROC: 07B74ZZ Excision of Thorax Lymphatic, Percutaneous Endoscopic Approach (ICD-10-PCS; 2024-03-31)
PROC: 0BBG4ZZ Excision of Left Upper Lung Lobe, Percutaneous Endoscopic Approach (ICD-10-PCS; principal; 2024-03-31 08:15)
PROC: 30233N1 Transfusion of Nonautologous Red Blood Cells into Peripheral Vein, Percutaneous Approach (ICD-10-PCS; 2024-04-01)
PROC: 041L0JJ Bypass Left Femoral Artery to Left Femoral Artery with Synthetic Substitute, Open Approach (ICD-10-PCS; 2024-04-09)
PROC: 04CL0ZZ Extirpation of Matter from Left Femoral Artery, Open Approach (ICD-10-PCS; 2024-04-09)
PROC: 04CN0ZZ Extirpation of Matter from Left Popliteal Artery, Open Approach (ICD-10-PCS; 2024-04-09)
PROC: B4201ZZ Computerized Tomography (CT Scan) of Abdominal Aorta using Low Osmolar Contrast (ICD-10-PCS; 2024-04-09)
PROC: B42H1ZZ Computerized Tomography (CT Scan) of Bilateral Lower Extremity Arteries using Low Osmolar Contrast (ICD-10-PCS; 2024-04-09)
PROC: B42H1ZZ Computerized Tomography (CT Scan) of Bilateral Lower Extremity Arteries using Low Osmolar Contrast (ICD-10-PCS; 2024-04-09)
PROC: 5A09357 Assistance with Respiratory Ventilation, Less than 24 Consecutive Hours, Continuous Positive Airway Pressure (ICD-10-PCS; 2024-04-11)
PROC: 5A0935A Assistance with Respiratory Ventilation, Less than 24 Consecutive Hours, High Flow/Velocity Cannula (ICD-10-PCS; 2024-04-15)
PROC: 0DB78ZX Excision of Stomach, Pylorus, Via Natural or Artificial Opening Endoscopic, Diagnostic (ICD-10-PCS; 2024-04-15)
PROC: 0W3P8ZZ Control Bleeding in Gastrointestinal Tract, Via Natural or Artificial Opening Endoscopic (ICD-10-PCS; 2024-04-15)
DX: C34.12 Malignant neoplasm of upper lobe, left bronchus or lung (principal); E43 Unspecified severe protein-calorie malnutrition; K25.4 Chronic or unspecified gastric ulcer with hemorrhage; I74.3 Embolism and thrombosis of arteries of the lower extremities; I70.222 Atherosclerosis of native arteries of extremities with rest pain, left leg; I99.8 Other disorder of circulatory system; I77.9 Disorder of arteries and arterioles, unspecified; Z68.20 Body mass index [BMI] 20.0-20.9, adult
CPT/HCPCS: 36415; 36430; 36600; 43236; 43239; 43255; 71045; 71250; 73590; 73720; 75635; 77002; 80047; 80048; 80053; 82803; 82810; 82948; 83605; 83735; 84100; 84132; 85007; 85008; 85018; 85025; 85027; 85730; 86885; 86900; 86901; 86920; 87081; 88304; 88305; 88307; 88331; 92508; 92616; 93308; 93922; 93971; 94002; 94003; 94760; 97110; 97116; 97161; 97530; 97535; 99152; 99153; A4314; A4615; A4618; A4649; A5200; A6196; A6212; A6213; A6222; A6223; A6250; A6253; A6258; A6260; A6402; A6446; A6449; A6455; A7000; A7048; A9575; A9900; C1751; C1758; C1768; C9250; C9290; G0378; J0131; J0171; J0360; J0690; J1100; J1170; J1630; J1644; J1885; J1940; J2250; J2354; J2371; J2405; J2470; J2543; J2704; J2765; J3010; J3475; J3480; J3490; J7030; J7040; J7042; J7050; J7060; J7120; J7121; P9016; P9045; P9047; Q9967

== ENCOUNTER 2024-03-29 08:27 | Day surgery (SDC) | payer MEDICARE, OTHER ==
[2024-03-29] VITALS (12 sets, daily range): BP systolic 143–175; BP diastolic 54–69; PULSE 71–84; RESP 12–15; TEMP 98.4; O2SAT 92–97
[~2024-03-29] VITALS: Ht 154.9 cm; Wt 47.4 kg
[~2024-03-29 08:27] MED LIST changes: +METO25TA6 PO; +MIRT-66 PO; +PANT40TA54 PO
[2024-03-29] MEDS ORDERED: iohexol 350 MG/ML 50ML vial IV ONE ×2 (08:47→10:57)
[2024-03-29] MEDS ORDERED: midazolam 1 mg/ML 2ml injection ONE (08:47)
[2024-03-29] MEDS ORDERED: iohexol 350MG/ML 100ml bottle IV ONE (08:47)
[2024-03-29] MEDS ORDERED: fentaNYL/PF 50MCG/1 ML 2ML syringe ONE (08:47)
[2024-03-29] MEDS ORDERED: LIDOcaine 1% 30ml preserv. free vial ONE (08:47)
[2024-03-29] MEDS ORDERED: nitroGLYCERIN 0.4mg SUBLingual tab SL PRN ×2 (09:10→11:55)
[2024-03-29 09:41] LABS: BASOPHILS % (AUTO) 0.7 % (0-1); EOSINOPHILS % (AUTO) 0.1 % (0-6); LYMPHOCYTES # (AUTO) 0.8 X10'3 (1.1-4.8); MEAN CORPUSCULAR HEMOGLOBIN 29.6 PG (27.0-31.0); MONOCYTES # (AUTO) 0.3 X10'3 (0-0.9); MONOCYTES % (AUTO) 5.8 % (2-12); NEUTROPHILS # (AUTO) 3.4 X10'3 (1.8-7.7); PLATELET COUNT 181 X10'3 (140-440); WHITE BLOOD COUNT 4.5 X10'3 (4.5-11.0)
[2024-03-29 09:43] LABS: HEMATOCRIT 32.5 % (35.0-45.0); HEMOGLOBIN 10.4 g/dl (12.0-16.0); LYMPHOCYTES % (AUTO) 17.2 % (21-51); MEAN CORPUSCULAR HGB CONC 32.2 g/dL (33.0-36.5); MEAN CORPUSCULAR VOLUME 91.8 FL (78-98); MEAN PLATELET VOLUME 9.1 FL (7.4-10.4); NEUTROPHILS % (AUTO) 76.2 % (42-75); RED BLOOD COUNT 3.53 X10'6 (4.20-5.60); RED CELL DISTRIBUTION WIDTH 16.6 % (11.5-14.5)
[2024-03-29 09:44] LABS: ALBUMIN 3.2 G/DL (3.4-5.0); ANION GAP 7 (8-16); BLOOD UREA NITROGEN 19 MG/DL (7-18); CALCIUM 8.8 MG/DL (8.5-10.1); CHLORIDE 95 MMOL/L (99-107); CREATININE 0.76 MG/DL (0.40-0.90); GLUCOSE 103 MG/DL (70-104); POTASSIUM 4.4 MMOL/L (3.5-5.1); SODIUM 129 MMOL/L (135-145); TOTAL CARBON DIOXIDE 26.9 MMOL/L (24-32); eCRCL 46 ML/MIN; eGFR 74 ML/MIN
[2024-03-29] MEDS: normal saline 1,000 ML IV SCH (09:46)
[2024-03-29] MEDS: diphenhydrAMINE 25mg capsule PO PRN (09:46)
[2024-03-29] MEDS: LORazepam 0.5 MG tablet PO PRN (09:46)
[2024-03-29 09:47] LABS: APTT 27 SECONDS (22-32); PROTHROMBIN TIME 10.4 SECONDS (9.0-12.0)
[2024-03-29] MEDS ORDERED: DIPH-423 PO (09:52)
[2024-03-29 10:04] LABS: PLATELET ESTIMATE NORMAL
[2024-03-29 10:05] LABS: ANISOCYTOSIS 1+; HYPOCHROMASIA 1+
[2024-03-29 10:06] LABS: POIKILOCYTOSIS 1+
[2024-03-29] MEDS ORDERED: enalaprilat dihydrate 2.5mg/2ml vial IV ONE (11:04)
[2024-03-29] MEDS ORDERED: HYDROcodone/acetaminophen 10/325mg tab PO PRN (11:55)
[2024-03-29] MEDS ORDERED: ondansetron/PF 4mg/2ml inj IV PRN (11:55)
[2024-03-29] MEDS ORDERED: OXAZEpam 15mg capsule PO PRN (11:55)
[2024-03-29] MEDS ORDERED: proCHLORperazine 10 MG/2 ml inj IV PRN (11:55)
[2024-03-29] MEDS ORDERED: normal saline 1000ml 1,000 ML IV ONE (11:55)
[2024-03-29] MEDS ORDERED: HYDROcodone/acetaminophen 5mg/325mg tablet PO PRN (11:55)
[2024-03-29] MEDS: lisinopril 20mg tablet PO SCH (12:17)
== END 2024-03-29 17:55 | disposition home or self-care (01) ==
LOC: SSTAY O 08:27
PROVIDERS: ATTEND Internal Medicine Cardiovascular Disease
DX: R94.39 Abnormal result of other cardiovascular function study (principal); I25.10 Atherosclerotic heart disease of native coronary artery without angina pectoris; I10 Essential (primary) hypertension
CPT/HCPCS: 36415; 71046; 80048; 85025; 85610; 85730; 93005; 93458; 93567; 99152; J1644; J2250; J3010; J3490; J7030; Q0163; Q9967; 85008; 99153; A6258; A6449; C1760